=== PATIENT | male | born 1970 | race Hispanic/Latino ===

== ENCOUNTER 2017-09-26 22:40 | Emergency (ER) | payer OTHER ==
[2017-09-27] MEDS ORDERED: KETOROLAC 30 MG/ML INJ ONE (00:22)
[2017-09-27] MEDS ORDERED: NA CHLORIDE 0.9% 0 ML ONE (00:22)
[2017-09-27 00:45] LABS: Absolute Lymphocytes (CBC) 2.7 K/uL (0.7-4.9); Absolute Monocytes 0.6 K/uL (0.1-1.3); Absolute Neutrophil 4.1 K/uL (1.8-8.0); Basophils % 1.5 % (0-1.3); Eosinophils % 3.7 % (0-4.4); Hematocrit 46.1 % (39.6-49.0); Lymphocytes % 34.6 % (15.3-44.8); MCH 32.8 pg (27.0-35.0); MCV 93.5 fL (80-100); MPV 8.3 fL (7.6-11.3); Monocytes % 7.2 % (3.3-12.3); RBC Red Blood Cell Count 4.93 M/uL (4.33-5.43)
[2017-09-27 00:49] LABS: Bicarbonate 25 mEq/L (21-31); Glucose Level 342 mg/dL (65-120); Lipase 24 U/L (22-51); Potassium 3.9 mEq/L (3.6-5.0); Sodium Level 135 mEq/L (135-145)
[2017-09-27 00:55] LABS: ALT/SGPT 159 IU/L (10-60); AST/SGOT 84 IU/L (10-42); Alkaline Phosphatase 116 IU/L (42-121); Amylase Level 45 U/L (28-100); BUN Blood Urea Nitrogen 16 mg/dL (6-20); Bilirubin Direct 0.2 mg/dL (0-0.2); Bilirubin Total 0.7 mg/dL (0.3-1.2); Protein, Total 8.3 g/dL (6.0-8.3)
[2017-09-27 01:11] LABS: Urine Blood NEGATIVE (NEG); Urine Glucose 3+ (NEG); Urine Protein NEGATIVE (NEG); Urine pH 6.5 (5.0-7.0)
[2017-09-27 01:30] LABS: Urine Bacteria <20 /HPF (NONE SEEN); Urine Culture Reflex Order REFLEXED; Urine RBC <5 /HPF (NONE SEEN); Urine Yeast FEW (NONE SEEN)
[2017-09-27] MEDS ORDERED: NA CHLORIDE 0.9% 1,000 ML ONE (01:35)
[2017-09-27] MEDS ORDERED: INSULIN -REGULAR HUMAN 50 UNIT/0.5 ML ML ONE (01:35)
--- NOTE | 2017-09-27 01:46 | ER ---
Nurse's Notes [facility] Name: Tunde Qiu Age: 47 yrs Sex: Male : 1970 Arrival Date: 09/26/2017 Time: 22:42 Bed 19 Private MD: Diagnosis: Low back pain;Diabetes mellitus due to underlying condition with hyperglycemia Presentation: 09/26 23:28 Presenting complaint: Patient states: "I have a UTI, my kidney area is hurting on the jd3 left side and I am having to pee a lot.". Transition of care: patient was not received from another setting of care. Onset of symptoms was September 13, 2017. Risk Assessment: Do you want to hurt yourself or someone else? Patient reports no desire to harm self or others. Initial Sepsis Screen: Does the patient meet any 2 criteria? No. Patient's initial sepsis screen is negative. Does the patient have a suspected source of infection? No. Patient's initial sepsis screen is negative. Care prior to arrival: None. 23:28 Method Of Arrival: Ambulatory jd3 23:28 Acuity: CLARENCE 3 jd3 Historical: - Allergies: 23:34 No Known Allergies; jd3 - Home Meds: 23:34 None [Active]; jd3 - PMHx: 23:34 Hypertension; Diabetes - NIDDM; jd3 - PSHx: 23:34 right shoulder sx; jd3 - Immunization history:: Adult Immunizations up to date. - Social history:: Smoking status: Patient/guardian denies using tobacco. - Ebola Screening: : Patient negative for fever greater than or equal to 101.5 degrees Fahrenheit, and additional compatible Ebola Virus Disease symptoms. Screenin:37 Abuse screen: Denies threats or abuse. Nutritional screening: No deficits noted. jd3 Tuberculosis screening: No symptoms or risk factors identified. Fall Risk Ambulatory Aid- None/Bed Rest/Nurse Assist (0 pts). Gait- Normal/Bed Rest/Wheelchair (0 pts) Mental Status- Oriented to own ability (0 pts). Total Sena Fall Scale indicates No Risk (0-24 pts). Assessment: 23:35 General: Appears uncomfortable, Behavior is calm, cooperative, appropriate for age. jd3 Pain: Complains of pain in right low back Pain currently is 6 out of 10 on a pain scale. Quality of pain is described as aching, Is intermittent, Alleviated by medications. Neuro: Level of Consciousness is awake, alert, obeys commands, Oriented to person, place, time, situation, Appropriate for age. Cardiovascular: Heart tones S1 S2 present Capillary refill < 3 seconds Patient's skin is warm and dry. Respiratory: Airway is patent Respiratory effort is even, unlabored, Respiratory pattern is regular, symmetrical, Breath sounds are clear bilaterally. GI: Abdomen is round Bowel sounds present X 4 quads. Abd is soft and non tender X 4 quads. Patient currently denies diarrhea, nausea, vomiting. : Reports urinary frequency. EENT: No signs and/or symptoms were reported regarding the EENT system. Derm: Skin is healthy with good turgor, Skin is pink, warm \\T\\ dry. Musculoskeletal: Circulation, motion, and sensation intact. Range of motion: intact in all extremities. 09/27 00:35 Reassessment: Patient appears in no apparent distress at this time. Patient and/or jd3 family updated on plan of care and expected duration. Pain level reassessed. Patient is alert, oriented x 3, equal unlabored respirations, skin warm/dry/pink. 02:00 Reassessment: Patient appears in no apparent distress at this time. Patient and/or jd3 family updated on plan of care and expected duration. Pain level reassessed. Patient is alert, oriented x 3, equal unlabored respirations, skin warm/dry/pink. pt reported understanding of discharge instructions, even and steady gait upon discharge. Patient states feeling better. Vital Signs: 09/26 23:34 BP 140 / 76; Pulse 80; Resp 18 S; Temp 98.6(O); Pulse Ox 96% on R/A; Weight 117.93 kg [facility] (R); Height 5 ft. 9 in. (175.26 cm) (R); Pain 6/10; 09/27 00:58 BP 135 / 70; Pulse 70; Resp 16 S; Pulse Ox 98% on R/A; jd3 02:01 BP 145 / 67; Pulse 71; Resp 17 S; Pulse Ox 97% on R/A; Pain 0/10; d3 09/26 23:34 Body Mass Index 38.39 (117.93 kg, 175.26 cm) [facility] ED Course: 09/26 22:42 Patient arrived in ED. am2 23:11 Page, Jethro, PA is PHCP. cp 23:11 Jethro Hernandez MD is Attending Physician. cp 23:28 Jimmy Elizalde RN is Primary Nurse. jd3 23:32 Triage completed. jd3 23:35 Arm band placed on. jd3 23:37 Patient has correct armband on for positive identification. Bed in low position. Call jd3 light in reach. Side rails up X 1. Adult w/ patient. 23:[address] via wheelchair. jj2 23:50 CT completed. Patient tolerated procedure well. Patient moved back from CT. kw1 23:53 CT Stone Protocol In Process Unspecified. EDMS 06 00:15 Inserted saline lock: 20 gauge in right forearm, using aseptic technique. Blood jd3 collected. 01:59 No provider procedures requiring assistance completed. IV discontinued, intact, jd3 bleeding controlled, No redness/swelling at site. Pressure dressing applied. Administered Medications: 00:32 Drug: TORadol 30 mg Route: IVP; Site: right forearm; jd3 01:44 Follow up: Response: No adverse reaction jd3 00:32 Drug: NS 0.9% 1000 ml Route: IV; Rate: 1 bolus; Site: right forearm; jd3 01:44 Follow up: Response: No adverse reaction; IV Status: Completed infusion; IV Intake: jd3 1000ml 01:43 Not Given (Physician Discretion): Insulin Regular Human 10 units IVP once cp 01:49 Drug: DiFLUcan 200 mg Route: PO; jd3 01:49 Follow up: Response: Medication administered at discharge. jd3 02:02 Not Given (Patient Refused): NS 0.9% 1000 ml IV at 1 bolus Per protocol; 1000 mL bolus jd3 Intake: 01:44 IV: 1000ml; Total: 1000ml. jd3 Outcome: 01:46 Discharge ordered by MD. cp 01:59 Discharged to home ambulatory. jd3 01:59 Condition: stable 01:59 Discharge instructions given to patient, family, Instructed on discharge instructions, follow up and referral plans. medication usage, Demonstrated understanding of instructions, follow-up care, medications, Prescriptions given X 2. 02:02 Patient left the ED. jd3 Addendum: 10/01/2017 09:59 Addendum: Culture Results: Positive urine culture. Patient was not prescribed i w antibiotics at discharge. Report given to GRACIA for further evaluation and then to veterinary microbiologist for follow up with patient. Phone call Attempt #1 wrong number on file. Signatures: Dispatcher [employer] EDAvni Jin jj2 Miriam Jenkins, RN RN iw Jethro Lawson PA PA cp Moreno, Amanda am2 Jimmy Elizalde RN RN jd3 Delfina Pedroza1
--- NOTE | 2017-09-27 01:46 | EDPHYS ---
Physician Documentation [facility] Name: Tunde Qiu Age: 47 yrs Sex: Male : 1970 Arrival Date: 09/26/2017 Time: 22:42 Bed 19 Private MD: ED Physician Jethro Hernandez HPI: 09/26 23:29 This 47 yrs old Male presents to ER via Unassigned with complaints of Urinary cp Frequency, Back Pain. 23:29 The patient complains of pain in the right lower lateral abdomen. cp 23:29 The pain does not radiate. Onset: The symptoms/episode began/occurred 1 month(s) ago. cp Modifying factors: the symptoms are aggravated by movement, palpation/percussion. Associated signs and symptoms: Pertinent positives: urinary frequency, Pertinent negatives: diarrhea, dysuria, fever, hematuria, pain radiating to the lower extremities, vomiting. Severity of pain: in the emergency department the pain is unchanged despite home interventions. Historical: - Allergies: 23:34 No Known Allergies; jd3 - Home Meds: 23:34 None [Active]; jd3 - PMHx: 23:34 Hypertension; Diabetes - NIDDM; jd3 - PSHx: 23:34 right shoulder sx; jd3 - Immunization history:: Adult Immunizations up to date. - Social history:: Smoking status: Patient/guardian denies using tobacco. - Ebola Screening: : Patient negative for fever greater than or equal to 101.5 degrees Fahrenheit, and additional compatible Ebola Virus Disease symptoms. ROS: 23:35 Constitutional: Negative for body aches, chills, fever, poor PO intake. cp 23:35 Eyes: Negative for injury, pain, redness, and discharge. cp 23:35 ENT: Negative for drainage from ear(s), ear pain, sore throat, difficulty swallowing, difficulty handling secretions. 23:35 Cardiovascular: Negative for chest pain, edema, palpitations. 23:35 Respiratory: Negative for cough, shortness of breath, wheezing. 23:35 Abdomen/GI: Negative for nausea and vomiting, diarrhea, constipation, anorexia, black/tarry stool, rectal bleeding. 23:35 Back: Positive for flank pain, on the right. 23:35 : Positive for urinary frequency, Negative for burning with urination, penile discharge, penile pain, testicular pain 23:35 Neuro: Negative for altered mental status, headache, weakness. 23:35 All other systems are negative. Exam: 23:42 Constitutional: The patient appears in no acute distress, alert, awake, comfortable, cp non-diaphoretic, non-toxic, well developed, well nourished. 23:42 Head/Face: Normocephalic, atraumatic. cp 23:42 Eyes: Periorbital structures: appear normal, Conjunctiva: normal, no exudate, no injection, Sclera: no appreciated abnormality, Lids and lashes: appear normal, bilaterally. 23:42 ENT: External ear(s): are unremarkable, Nose: is normal, Mouth: Lips: moist, Oral mucosa: pink and intact, moist, Posterior pharynx: is normal, airway is patent. 23:42 Neck: ROM/movement: is normal, is supple, without pain, no range of motions limitations, no nuchal rigidity. 23:42 Chest/axilla: Inspection: normal, Palpation: is normal, no crepitus, no tenderness. 23:42 Cardiovascular: Rate: normal, Rhythm: regular. 23:42 Respiratory: the patient does not display signs of respiratory distress, Respirations: normal, no use of accessory muscles, no retractions, no splinting, no tachypnea, Breath sounds: are clear throughout, no decreased breath sounds, no stridor, no wheezing. 23:42 Abdomen/GI: Inspection: obese Bowel sounds: active, all quadrants, Palpation: soft, in all quadrants, nontender, in all quadrants, rebound tenderness, is not appreciated, voluntary guarding, is not appreciated, involuntary guarding, is not appreciated. 23:42 : CVA tenderness, is absent. 23:42 Musculoskeletal/extremity: Exam is negative for bony tenderness, calf tenderness, decreased range of motion, injury. 23:42 Skin: cellulitis, is not appreciated, consistent with tinea, on the lower abdomen pannis. 23:42 Neuro: Orientation: to person, place \T\ time. Mentation: lucid, able to follow commands, Cerebellar function: is grossly normal, Motor: moves all fours, strength is normal, Sensation: no obvious gross deficits, Gait: is steady. Vital Signs: 23:34 BP 140 / 76; Pulse 80; Resp 18 S; Temp 98.6(O); Pulse Ox 96% on R/A; Weight 117.93 kg jd3 (R); Height 5 ft. 9 in. (175.26 cm) (R); Pain 6/10; 09/27 00:58 BP 135 / 70; Pulse 70; Resp 16 S; Pulse Ox 98% on R/A; jd3 02:01 BP 145 / 67; Pulse 71; Resp 17 S; Pulse Ox 97% on R/A; Pain 0/10; jd3 09/26 23:34 Body Mass Index 38.39 (117.93 kg, 175.26 cm) jd3 MDM: 09/26 23:11 Patient medically screened. cp 09/27 00:00 Differential diagnosis: nephrolithiasis, pyelonephritis, UTI, testicular torsion, cp diverticulitis, pancreatitis, dissecting AAA. 01:45 Data reviewed: vital signs, nurses notes, lab test result(s), radiologic studies, CT cp scan. 01:45 Counseling: I had a detailed discussion with the patient and/or guardian regarding: the cp historical points, exam findings, and any diagnostic results supporting the discharge/admit diagnosis, lab results, radiology results, the need for outpatient follow up, a family practitioner, to return to the emergency department if symptoms worsen or persist or if there are any questions or concerns that arise at home. Response to treatment: the patient's symptoms have markedly improved after treatment, and as a result, I will discharge patient. Special discussion: Based on the patient's Hx, exam, and Dx evaluation, there is no indication for emergent surgery or inpatient Tx. It is understood by the patient/guardian that if the Sx's persist or worsen they need to return immediately for re-evaluation. VSS. Will discharge to home for continued monitoring. 09/26 23:28 Order name: Amylase, Serum; Complete Time: : cp 09/26 23:28 Order name: Basic Metabolic Panel; Complete Time: : cp 09/26 23:28 Order name: CBC with Diff; Complete Time: cp 09/26 23:28 Order name: Creatinine for Radiology; Complete Time: : cp 09/26 23:28 Order name: Hepatic Function; Complete Time: : cp 09/27 01:31 Interpretation: Normal except: SGOT 84; SGPT 159; GLOB 4.3; A/G 0.9. cp 09/26 23:28 Order name: Lipase; Complete Time: 01:14 cp 09/26 23:28 Order name: CT Stone Protocol; Complete Time: 01:08 cp 09/26 23:28 Order name: Urine Microscopic Only; Complete Time: 01:31 cp 09/27 00:34 Order name: Urine Dipstick--Ancillary (enter results); Complete Time: 01:14 rg2 09/27 01:32 Order name: Urine Culture EDMS 09/26 23:28 Order name: IV Saline Lock; Complete Time: 00:18 cp 09/26 23:28 Order name: Labs collected and sent; Complete Time: 00:18 cp 09/26 23:28 Order name: Urine Dipstick-Ancillary (obtain specimen); Complete Time: 00:32 cp Administered Medications: 00:32 Drug: TORadol 30 mg Route: IVP; Site: right forearm; jd3 01:44 Follow up: Response: No adverse reaction jd3 00:32 Drug: NS 0.9% 1000 ml Route: IV; Rate: 1 bolus; Site: right forearm; jd3 01:44 Follow up: Response: No adverse reaction; IV Status: Completed infusion; IV Intake: jd3 1000ml 01:43 Not Given (Physician Discretion): Insulin Regular Human 10 units IVP once cp 01:49 Drug: DiFLUcan 200 mg Route: PO; jd3 01:49 Follow up: Response: Medication administered at discharge. jd3 02:02 Not Given (Patient Refused): NS 0.9% 1000 ml IV at 1 bolus Per protocol; 1000 mL bolus jd3 Disposition: 06:01 Co-signature as Attending Physician, Jethro Hernandez MD I agree with the assessment and lillian plan of care. Chart complete. Disposition: 09/27/17 01:46 Discharged to Home. Impression: Low back pain, Diabetes mellitus due to underlying condition with hyperglycemia. - Condition is Stable. - Discharge Instructions: Back Pain, Adult, Type 2 Diabetes Mellitus, Adult, Blood Glucose Monitoring, Adult, Diabetes Mellitus and Food, Back Exercises, [id number]. - Prescriptions for Clotrimazole 1 % Topical Cream - Apply to affected area 1 application by TOPICAL route every 12 hours for 1 week apply to lower abdomen/pannis as directed; 30 gram. Naprosyn 500 mg Oral Tablet - take 1 tablet by ORAL route 2 times per day take with food; 30 tablet. - Medication Reconciliation Form, Thank You Letter, Antibiotic Education, Prescription Opioid Use form. - Follow up: Private Physician; When: 2 - 3 days; Reason: elevated glucose. - Problem is new. - Symptoms have improved. Signatures: Dispatcher [employer] EDJethro Mann MD MD cha Page, Corey, PA PA cp Davies, Jonathon, RN RN jd3 Corrections: (The following items were deleted from the chart) 02:02 01:46 09/27/2017 01:46 Discharged to Home. Impression: Low back pain; Diabetes mellitus jd3 due to underlying condition with hyperglycemia. Condition is Stable. Forms are Medication Reconciliation Form, Thank You Letter, Antibiotic Education, Prescription Opioid Use. Follow up: Private Physician; When: 2 - 3 days; Reason: elevated glucose. Problem is new. Symptoms have improved. cp
[2017-09-27] MEDS ORDERED: FLUCONAZOLE 100 MG TAB ONE (01:48)
--- NOTE | 2017-09-27 08:37 | RAD REPORT ---
EXAM DESCRIPTION: CT - Stone Protocol - 09/27/2017 5:15 am CLINICAL HISTORY: Abdominal pain. Flank pain. COMPARISON: 2008 TECHNIQUE: Computed axial tomography of the abdomen pelvis was obtained without oral or IV contrast. Lack of IV and oral contrast limits evaluation of solid organs, bowel, and vessels. Coronal reformat dani images were obtained and reviewed. A preliminary report was generated by [employer] and [employer] prior to this dictation All CT scans are performed using dose optimization technique as appropriate and may include automated exposure control or mA/KV adjustment according to patient size. FINDINGS: A renal calculus is not seen. An ureteral calculus is not noted. A bladder calculus is not present. The liver, spleen, pancreas and adrenals appear grossly normal There is no evidence of diverticulitis. Mild stranding is present within the central mesenteric with small lymph nodes. A small umbilical hernia is present. Small inguinal hernias contain fat A linear metallic density abutting the left pubic bone is unchanged from the prior exam IMPRESSION: Negative for a genitourinary calculus Mild stranding within the central mesentery with small lymph nodes may indicate a mesenteritis
== END 2017-09-27 02:02 | disposition home or self-care (01) ==
LOC: ER 22:40
DX: E08.65 Diabetes mellitus due to underlying condition with hyperglycemia (principal); I10 Essential (primary) hypertension
CPT/HCPCS: 36415; 74176; 76377; 80048; 80076; 81003; 81015; 82150; 82962; 83690; 85025; 87077; 87086; 87088; 87186; 96361; 96374; 99284; J7030